=== PATIENT | female | born 1985 | race Two or more races ===

== ENCOUNTER 2016-10-24 09:55 | Emergency (ER) | payer OTHER ==
[~2016-10-24] VITALS: Ht 167.6 cm; Wt 61.2 kg
[2016-10-24 10:16] VITALS: BP 104/75
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
[2016-10-24] MEDS ORDERED: Tetanus/Diptheria/Pertussis Vaccine 0.5ml Syr IM ONE (11:15)
[2016-10-24 12:13] VITALS: BP 108/78
[2016-10-24 12:26] VITALS: BP 108/78
== END 2016-10-24 12:28 | disposition home or self-care (01) ==
LOC: EDBD 09:55 → EMR 10:10
DX: F10.129 Alcohol abuse with intoxication, unspecified (principal); S20.412A Abrasion of left back wall of thorax, initial encounter; Y04.0XXA Assault by unarmed brawl or fight, initial encounter; Y92.89 Other specified places as the place of occurrence of the external cause; Z23 Encounter for immunization
CPT/HCPCS: 90471; 90715; 96372; 99283